=== PATIENT | male | born 1975 | race Caucasian/White ===

== ENCOUNTER 2016-12-28 15:00 | Emergency (ER) | payer SELFPAY ==
[~2016-12-28] VITALS: Ht 167.6 cm; Wt 65.2 kg
[2016-12-28 15:37] LABS: HEMATOCRIT 44.2 % (38.0-50.0); MCH 30.2 PG (29.0-34.0); MCHC 32.4 G/DL (30.0-36.0); MCV 93.4 FL (86-99); MEAN PLAT.VOLUME 10.8 uM^3 (9.0-12.4); PLATELET COUNT 207 K/uL (156-360); RBC DIS.WIDTH-CV 13.8 % (11.8-14.6); RBC DIS.WIDTH-SD 47.3 % (39-53); RED BLOOD COUNT 4.73 M/uL (4.00-5.50); WHITE BLOOD COUNT 10.5 K/uL (4.1-10.2)
[2016-12-28 15:46] LABS: CHLORIDE 106 mEq/L (99-109)
[2016-12-28 15:47] LABS: POTASSIUM 3.7 mEq/L (3.7-5.4); SODIUM 140 mEq/L (136-147)
[2016-12-28 15:49] LABS: GLUCOSE 96 mg/dL (70-99)
[2016-12-28 15:50] LABS: ANION GAP 11 MEQ/L (2-14)
[2016-12-28 15:51] LABS: TOTAL BILIRUBIN 0.4 mg/dL (0.0-1.0)
[2016-12-28 15:52] LABS: ALKALINE PHOSPHATASE 88 IU/L (3-129); SERUM ETHYL ALCOHOL < 10 mg/dL
[2016-12-28 15:53] LABS: GFR ESTIMATE (CALCULATED) > 59 mL/min/
[2016-12-28 15:54] LABS: UREA NITROGEN (BUN) 11 mg/dL (9-23)
[2016-12-28 15:56] LABS: CREATINE KINASE 116 IU/L (1-294)
[2016-12-28 17:59] VITALS: BP 136/96
== END 2016-12-28 17:59 | disposition home or self-care (01) ==
LOC: EME 15:00
PROVIDERS: Emergency Medicine
DX: T40.991A Poisoning by other psychodysleptics [hallucinogens], accidental (unintentional), initial encounter (principal); R40.20 Unspecified coma; R06.02 Shortness of breath; Y92.009 Unspecified place in unspecified non-institutional (private) residence as the place of occurrence of the external cause; F16.10 Hallucinogen abuse, uncomplicated; F17.200 Nicotine dependence, unspecified, uncomplicated
CPT/HCPCS: 80053; 81003; 82550; 85027; 99281; 99285; G0480; J7030